=== PATIENT | male | born 1955 | race Caucasian/White ===

== ENCOUNTER → 2021-07-18 | Outpatient (CLI) | payer OTHER ==
[2021-07-19 06:08] LABS: HEPATITIS C ANTIBODY <0.1 (0.0-0.9)
[2021-07-19 07:07] LABS: HBSAG Negative (Negative); HEP B CORE AB, IGM Negative (Negative); HEPATITIS A AB IGM Negative (Negative)
[2021-07-19 10:07] LABS: RHEUMATOID FACTOR <10.0 IU/mL (<14.0)
[2021-07-21 00:06] LABS: DILUTE PROTHROMBIN TIME 43.1 sec (0.0-47.6); DPT CONFIRM RATIO 1.06 Ratio (0.00-1.34); LUPUS DRVVT 55.4 sec (0.0-47.0); THROMBIN TIME 16.9 sec (0.0-23.0)
[2021-07-21 01:05] LABS: LUPUS REFLEX INTERPRETATION Comment: (.)
== END | disposition home or self-care (01) ==
LOC: LAB 07:05
PROVIDERS: ATTEND Family Medicine
DX: Z11.59 Encounter for screening for other viral diseases (principal); R53.83 Other fatigue; M12.9 Arthropathy, unspecified; E78.5 Hyperlipidemia, unspecified; Z72.89 Other problems related to lifestyle

== ENCOUNTER → 2021-07-22 | Outpatient (CLI) | payer OTHER | LOC: LAB 01:32 | PROVIDERS: ATTEND Family Medicine | DX: M12.9 Arthropathy, unspecified (principal); E78.5 Hyperlipidemia, unspecified ==

== ENCOUNTER → 2022-01-30 | Outpatient (CLI) | payer OTHER ==
[2022-01-30 08:55] LABS: BASO % 0.5 % (0.0-1.0); EOS # 0.2 10*3/uL (0.0-0.4); EOS % 2.3 % (1.0-4.0); HEMATOCRIT 38.4 % (42.0-52.0); LYMPH % 13.4 % (27.0-41.0); MEAN CELL VOLUME 105.2 fl (80.0-94.0); MEAN CORPUSCULAR HGB 34.8 pg (27.0-31.0); MEAN CORPUSCULAR HGB CONC 33.1 g/dl (33.0-37.0); MONO # 0.3 10*3/uL (0.1-1.0); MONO % 3.2 % (3.0-9.0); NEUT # 6.2 10*3/uL (2.3-7.9); NEUT % 80.3 % (47.0-73.0); PLATELET COUNT AUTOMATED 327 10*3/uL (130-400); RED BLOOD COUNT 3.65 10*6/uL (4.50-5.90); RED CELL DISTRI WIDTH 13.7 % (0-14.5); WHITE BLOOD COUNT 7.7 10*3/uL (4.8-10.8)
[2022-01-30 09:23] LABS: ALKALINE PHOSPHATASE 75 U/L (46-116); BUN 15 mg/dl (9-23); CHLORIDE 109 mmol/L (98-107); CREATININE 0.83 mg/dL (0.70-1.30); FREE T4 0.75 ng/dl (0.89-1.76); SODIUM 140 mmol/L (136-145); THYROID STIM HORMONE (HS) 0.721 uIU/ml (0.550-4.780); TOTAL PROTEIN 7.7 gm/dL (6.0-8.0)
[2022-01-30 10:49] LABS: SGPT/ALT 15 U/L (12-78)
[2022-01-31 01:12] LABS: RBC 3.61 x10E6/uL (4.14-5.80); TOTAL PROTEIN, SERUM 7.4 g/dL (6.0-8.5)
[2022-01-31 04:06] LABS: DHEA SULFATE 25.4 ug/dL (30.9-295.6); THYROID PEROXIDASE (TPO) AB 55 IU/mL (0-34)
[2022-01-31 05:06] LABS: IMMUNOGLOBULIN G, QNT 894 mg/dL (603-1613); IMMUNOGLOBULIN M, QNT 127 mg/dL (20-172)
[2022-02-01 18:06] LABS: G-6-PD, QUANT 373 (127-427)
[2022-02-02 14:07] LABS: A/G RATIO 1.1 (0.7-1.7); ALBUMIN 3.9 g/dL (2.9-4.4); ALPHA-1-GLOBULIN 0.4 g/dL (0.0-0.4); BETA GLOBULIN 1.3 g/dL (0.7-1.3); GAMMA GLOBULIN 0.8 g/dL (0.4-1.8); GLOBULIN, TOTAL 3.5 g/dL (2.2-3.9); M-SPIKE Not Observed g/dL (Not Observed)
[2022-02-02 15:06] LABS: IMMUNOFIXATION RESULT, SERUM Comment: (.)
[2022-02-02 16:07] LABS: ANTI-RNP ANTIBODIES <0.2 AI (0.0-0.9); SJOGREN ANTI-SS-A <0.2 AI (0.0-0.9); SJOREN AB, ANTI-SS-B 0.4 AI (0.0-0.9)
[2022-02-02 20:06] LABS: TESTOSTERONE FREE, (DIRECT) 3.8 pg/mL (6.6-18.1)
[2022-02-02 22:05] LABS: THYROGLOBULIN ANTIBODY <1.0 IU/mL (0.0-0.9)
== END | disposition home or self-care (01) ==
LOC: LAB 08:20
PROVIDERS: ATTEND Family Medicine
DX: M85.80 Other specified disorders of bone density and structure, unspecified site (principal); M12.9 Arthropathy, unspecified; R20.2 Paresthesia of skin; D53.9 Nutritional anemia, unspecified; R76.0 Raised antibody titer

== ENCOUNTER 2022-05-26 07:06 | Emergency (ER) | payer MEDICARE ==
[~2022-05-26] VITALS: Ht 170.1 cm; Wt 63.5 kg
[2022-05-26] MEDS ORDERED: HYDROXYZINE PAM25 M1 PO (07:56)
[2022-05-26] MEDS ORDERED: OMEPRAZOLE40 MG PO (07:56)
[2022-05-26] MEDS ORDERED: NEURONTIN300 MG PO (07:56)
[2022-05-26] MEDS ORDERED: PERCOCET 10-321 EACH PO (07:57)
[2022-05-26] MEDS ORDERED: PLAQUENIL200 MG PO (07:57)
[2022-05-26] MEDS ORDERED: ROSUVASTATIN CA20 MG PO (07:57)
[2022-05-26] MEDS ORDERED: SOMA350 MG PO (07:58)
[2022-05-26] MEDS ORDERED: CYMBALTA60 MG PO (07:58)
[2022-05-26] MEDS ORDERED: PREDNISONE5 MG PO (07:59)
[2022-05-26] MEDS ORDERED: KAPSPARGO SPRIN25 MG PO (07:59)
[2022-05-26] MEDS ORDERED: CALCIUM 600 MG1 EAC8 PO (07:59)
[2022-05-26] MEDS ORDERED: VITAMIN C500 M4 PO (08:00)
[2022-05-26] MEDS ORDERED: DAILY VALUE1 EACH PO (08:00)
[2022-05-26] MEDS ORDERED: ASPIRIN ADULT L81 M1 PO (08:00)
[2022-05-26] MEDS ORDERED: MAGNESIUM250 M3 PO (08:00)
== END 2022-05-26 09:34 | disposition home or self-care (01) ==
LOC: ED 07:06
DX: S39.012A Strain of muscle, fascia and tendon of lower back, initial encounter (principal); M81.0 Age-related osteoporosis without current pathological fracture; K21.9 Gastro-esophageal reflux disease without esophagitis; I10 Essential (primary) hypertension; W19.XXXA Unspecified fall, initial encounter; Y93.89 Activity, other specified; Y92.009 Unspecified place in unspecified non-institutional (private) residence as the place of occurrence of the external cause; Y99.8 Other external cause status